=== PATIENT | male | born 1970 | race Caucasian/White ===

== ENCOUNTER 2018-03-08 07:29 | Emergency (ER) | payer MEDICAID, OTHER ==
[~2018-03-08] VITALS: Ht 185.4 cm; Wt 104.5 kg
[2018-03-08] MEDS ORDERED: LIDOcaine 1% 30ml preserv. free vial IJ ONE (08:20)
[2018-03-08] MEDS ORDERED: piperacillin/tazo 3.375gm/50ml 50 ML IV ONE (08:40)
[2018-03-08] MEDS ORDERED: normal saline 1000ML IV soln IV ONE (08:40)
[2018-03-08 09:03] LABS: BASOPHILS # (AUTO) 0.2 X10'3 (0-0.2); BASOPHILS % (AUTO) 0.9 % (0-1); EOSINOPHILS # (AUTO) 0.3 X10'3 (0-0.9); EOSINOPHILS % (AUTO) 1.7 % (0-6); HEMATOCRIT 44.1 % (42.0-52.0); HEMOGLOBIN 14.8 g/dl (14.0-17.9); LYMPHOCYTES # (AUTO) 2.8 X10'3 (1.1-4.8); LYMPHOCYTES % (AUTO) 14.5 % (21-51); MEAN CORPUSCULAR HGB CONC 33.6 % (33.0-36.5); MEAN CORPUSCULAR VOLUME 86.3 FL (78-98); MEAN PLATELET VOLUME 8.8 FL (7.4-10.4); MONOCYTES # (AUTO) 2.1 X10'3 (0-0.9); MONOCYTES % (AUTO) 10.9 % (2-12); PLATELET COUNT 262 X10'3 (140-440); RED BLOOD COUNT 5.12 X10'6 (4.70-6.10); WHITE BLOOD COUNT 19.5 X10'3 (4.5-11.0)
[2018-03-08 09:27] LABS: ALANINE AMINOTRANSFERASE 36 U/L (12-78); ALBUMIN 3.4 G/DL (3.4-5.0); ALBUMIN/GLOBULIN RATIO 0.8 (1.1-1.5); ALKALINE PHOSPHATASE 102 IU/L (46-116); ANION GAP 9 (8-16); BILIRUBIN,TOTAL 0.5 MG/DL (0.1-1.0); BLOOD UREA NITROGEN 14 MG/DL (7-18); BUN/CREATININE RATIO 16.3 (5.4-32.0); CALCIUM 8.7 MG/DL (8.5-10.1); CHLORIDE 100 MMOL/L (99-107); CREATININE 0.86 MG/DL (0.60-1.10); GLUCOSE 138 MG/DL (70-104); SODIUM 136 MMOL/L (135-145); TOTAL CARBON DIOXIDE 27.2 MMOL/L (24-32); TOTAL PROTEIN 7.6 G/DL (6.4-8.2); eGFR > 90 ML/MIN
[2018-03-08 09:28] LABS: ASPARTATE AMINO TRANSFERASE 20 U/L (10-37); POTASSIUM 4.6 MMOL/L (3.5-5.1)
[2018-03-08] MEDS ORDERED: iohexol 300mg/ml 100ml inj. ONE (09:59)
[2018-03-08] MEDS ORDERED: vancomycin/NS 1 GM ADD-VANTAGE 250 ML IV ONE (10:00)
[2018-03-08] MEDS ORDERED: HYDR-4353 PO (11:13)
[2018-03-08] MEDS ORDERED: SULF1TAB49 PO (11:13)
[2018-03-08] MEDS ORDERED: CEPH-572 PO (11:13)
[2018-03-08 12:26] VITALS: BP 134/84
== END 2018-03-08 12:22 | disposition home or self-care (01) ==
LOC: ER 07:29
DX: L03.011 Cellulitis of right finger (principal); L03.121 Acute lymphangitis of right axilla
CPT/HCPCS: 10060; 36415; 73201; 80053; 83605; 84145; 85025; 87040; 87070; 87077; 87186; 96365; 96367; 99284; J2543; J3370; J3490; J7030; Q9967

== ENCOUNTER 2020-05-11 02:21 | Emergency (ER) | payer MEDICAID ==
[~2020-05-11] VITALS: Ht 185.4 cm; Wt 105.0 kg
[2020-05-11 02:24] VITALS: BP 168/110
--- NOTE | 2020-05-11 02:36 | NUR ---
TAUGHT PT ABOUT HTN DISORDER, MONITOR HIS BP, TALK TO HIS MD, WATCH HIS SODIUM INTAKE. DISCUSSED THAT.
[2020-05-11] MEDS ORDERED: SULF1TAB49 PO (02:38)
[2020-05-11] MEDS ORDERED: sulfamethoxazole/trimethoprim DS (800/160mg) tablet PO ONE (02:40)
[2020-05-11] MEDS ORDERED: ondansetron 4mg rapidly disintigrating tab PO ONE (02:40)
== END 2020-05-11 02:46 | disposition home or self-care (01) ==
LOC: ER 02:21
DX: L03.115 Cellulitis of right lower limb (principal); Z79.2 Long term (current) use of antibiotics
CPT/HCPCS: 99283

== ENCOUNTER 2021-02-15 01:58 | Emergency (ER) | payer MEDICAID ==
[~2021-02-15] VITALS: Ht 182.9 cm; Wt 109.0 kg
[2021-02-15 02:20] VITALS: BP 162/112
[2021-02-15 03:05] LABS: BASOPHILS # (AUTO) 0.1 X10'3 (0-0.2); BASOPHILS % (AUTO) 0.9 % (0-1); EOSINOPHILS # (AUTO) 0.1 X10'3 (0-0.9); EOSINOPHILS % (AUTO) 0.5 % (0-6); HEMATOCRIT 44.1 % (42.0-52.0); HEMOGLOBIN 15.2 g/dl (14.0-17.9); LYMPHOCYTES # (AUTO) 2.3 X10'3 (1.1-4.8); LYMPHOCYTES % (AUTO) 15.8 % (21-51); MEAN CORPUSCULAR HEMOGLOBIN 30.3 PG (27.0-31.0); MEAN CORPUSCULAR HGB CONC 34.6 g/dL (33.0-36.5); MEAN CORPUSCULAR VOLUME 87.5 FL (78-98); MEAN PLATELET VOLUME 8.7 FL (7.4-10.4); MONOCYTES # (AUTO) 1.2 X10'3 (0-0.9); MONOCYTES % (AUTO) 8.5 % (2-12); NEUTROPHILS # (AUTO) 10.7 X10'3 (1.8-7.7); NEUTROPHILS % (AUTO) 74.3 % (42-75); PLATELET COUNT 268 X10'3 (140-440); RED BLOOD COUNT 5.03 X10'6 (4.70-6.10); RED CELL DISTRIBUTION WIDTH 12.8 % (11.5-14.5); WHITE BLOOD COUNT 14.5 X10'3 (4.5-11.0)
[2021-02-15 03:09] LABS: ALANINE AMINOTRANSFERASE 38 U/L (12-78); ALBUMIN 3.7 G/DL (3.4-5.0); ALBUMIN/GLOBULIN RATIO 0.9 (1.1-1.5); ALKALINE PHOSPHATASE 105 IU/L (46-116); ANION GAP 11 (8-16); ASPARTATE AMINO TRANSFERASE 9 U/L (10-37); BILIRUBIN,TOTAL 0.2 MG/DL (0.1-1.0); BLOOD UREA NITROGEN 15 MG/DL (7-18); BUN/CREATININE RATIO 15.6 (5.4-32.0); CALCIUM 9.2 MG/DL (8.5-10.1); CHLORIDE 97 MMOL/L (99-107); CREATININE 0.96 MG/DL (0.60-1.10); GLUCOSE 409 MG/DL (70-104); POTASSIUM 4.5 MMOL/L (3.5-5.1); SODIUM 133 MMOL/L (135-145); TOTAL CARBON DIOXIDE 24.9 MMOL/L (24-32); TOTAL PROTEIN 7.7 G/DL (6.4-8.2); eGFR 83 ML/MIN
== END 2021-02-15 05:05 | disposition left against medical advice (07) ==
LOC: ER 01:58
DX: R07.89 Other chest pain (principal); I25.10 Atherosclerotic heart disease of native coronary artery without angina pectoris; I10 Essential (primary) hypertension; Z95.5 Presence of coronary angioplasty implant and graft
CPT/HCPCS: 36415; 71045; 80053; 83880; 84484; 85025; 93005; 99285